=== PATIENT | male | born 1995 | race Two or more races ===

== ENCOUNTER 2021-12-16 17:02 | Emergency (ER) | payer MEDICAID, SELFPAY ==
[~2021-12-16] VITALS: Ht 167.6 cm; Wt 84.1 kg
[2021-12-16 17:10] VITALS: BP 135/86
[2021-12-16 19:03] LABS: BASO % 0.3 % (0.0-1.0); EOS # 0.1 10^3/uL (0.0-0.5); EOS % 0.6 % (0.0-3.0); HEMATOCRIT 47.8 % (42.0-52.0); HEMOGLOBIN 14.9 g/dl (13.5-17.5); LYMPH # 2.6 10^3/uL (1.5-5.0); LYMPH % 24.4 % (24.0-44.0); MEAN CORPUSCULAR HEMOGLOBIN 28.2 pg (27.0-33.0); MEAN CORPUSCULAR HGB CONC 31.2 g/dl (32.0-36.5); MEAN CORPUSCULAR VOLUME 90.4 fl (80.0-96.0); MONO # 0.7 10^3/uL (0.0-0.8); MONO % 6.5 % (2.0-8.0); NEUTROPHILS # 7.3 10^3/uL (1.5-8.5); PLATELET COUNT, AUTOMATED 317 10^3/uL (150-450); RED BLOOD COUNT 5.29 10^6/uL (4.30-6.10); WHITE BLOOD COUNT 10.7 10^3/uL (4.0-10.0)
== END 2021-12-16 19:48 | disposition home or self-care (01) ==
LOC: M ED 17:02
DX: R07.89 Other chest pain (principal)